=== PATIENT | female | born 1960 | race African-American/Black ===

== ENCOUNTER 2017-04-01 06:59 | Inpatient (IN) | payer MEDICARE, MEDICAID ==
[~2017-04-01] VITALS: Ht 177.8 cm; Wt 91.2 kg
[~2017-04-01 06:59] MED LIST: LISI-646 PO; METF-370 PO
[2017-04-01] MEDS ORDERED: PROMETHAZINE HCL 25 MG/ML 1ML ONE (07:48)
[2017-04-01] MEDS ORDERED: PROMETHAZINE HCL 25 MG/ML 1ML IV ONE (08:15)
[2017-04-01] MEDS ORDERED: SODIUM CHLORIDE 0.9% 1,000 ML IVB ONE ×2 (08:29→14:43)
[2017-04-01] MEDS ORDERED: MORPHINE SULF INJ 2 MG/ML SYRINGE 1ML IV ONE ×2 (08:30→11:30)
[2017-04-01 09:23] LABS: Albumin 3.9 g/dL (3.4-5.0); Anion Gap 9 (5-15); Aspartate Aminotransferase 13 U/L (15-37); BUN/Creatinine Ratio 10.9; Blood Urea Nitrogen 10 mg/dL (7-18); Calcium 8.9 mg/dL (8.5-10.1); Carbon Dioxide 24 mmol/L (21-32); Chloride 110 mmol/L (98-107); GFR African American 82 mL/min; GFR Non-African American 67 mL/min; Glucose 218 mg/dL (74-106); Magnesium 1.7 mg/dL (1.6-2.6); Potassium 3.3 mmol/L (3.5-5.1); Sodium 143 mmol/L (136-145)
[2017-04-01 09:28] LABS: Alkaline Phosphatase 70 U/L (45-117); Bilirubin, Total 0.4 mg/dL (0.2-1.0); Total Protein 8.3 g/dL (6.4-8.2)
[2017-04-01] MEDS ORDERED: MORPHINE SULF INJ 2 MG/ML SYRINGE 1ML ONE (11:14)
[2017-04-01 11:33] LABS: Urine Bilirubin Negative (Negative); Urine Blood Negative /uL (Negative); Urine Color Colorless (Yellow); Urine Glucose 3+ mg/dL (Normal); Urine Ketone Negative (Negative); Urine Nitrite Negative (Negative); Urine RBC 3 /hpf (0 - 4); Urine Squamous Epithelial Cell FEW /hpf (<5); Urine Urobilinogen Normal (Negative)
[2017-04-01 12:19] LABS: Basophils # (auto) 0.1 uL; Basophils % (auto) 0.4 % (0.0-2.0); Eosinophils # (auto) 0 uL; Hematocrit 43.2 % (36.0-46.0); Hemoglobin 14.5 g/dL (12.2-16.2); Lymphocytes # (auto) 0.7 uL; Lymphocytes % (auto) 6.4 % (10.0-50.0); Mean Corpuscular Hemoglobin 29.3 pg (28.0-32.0); Mean Corpuscular Hgb Conc. 33.5 g/dL (32.0-36.0); Mean Corpuscular Volume 87.4 fL (80.0-100.0); Mean Platelet Volume 9.9 fL (6.9-10.8); Monocytes # (auto) 0.2 uL; Monocytes % (auto) 1.8 % (0.0-12.0); Neutrophils # (auto) 10.6 uL; Neutrophils % (auto) 91.4 % (37.0-80.0); Nucleated Red Blood Cells % 0.1 %; Platelet Count (auto) 188 10^3/uL (140-450); Red Cell Distribution Width 14.5 % (11.8-14.3); White Blood Cell 11.6 10^3/uL (4.4-10.8)
[2017-04-01] MEDS ORDERED: POTASSIUM CHL 10% (20 MEQ/15ML) 15ml ORAL SOLN PO ONE (12:30)
[2017-04-01] MEDS ORDERED: PROCHLORPERAZINE EDISYLATE 5 MG/ML 2ML VIAL IV ONE (14:45)
[2017-04-01] MEDS ORDERED: TEMAZEPAM 15 MG CAP PO PRN (15:00)
[2017-04-01] MEDS ORDERED: MORPHINE SULF INJ 2 MG/ML SYRINGE 1ML IV PRN ×2 (15:00)
[2017-04-01] MEDS ORDERED: DEXTROSE (50%) 50ML SYRG IV PRN (15:00)
[2017-04-01] MEDS ORDERED: HYDROcodone-ACET 5/325MG TAB PO PRN (15:00)
[2017-04-01] MEDS ORDERED: cefTRIAXone 1GM/50ML D5W 50 ML IV ONE (15:00)
[2017-04-01] MEDS ORDERED: NITROGLYCERIN 0.4 MG SL TAB SL PRN (15:00)
[2017-04-01] MEDS: SOD CHL 0.9%/ KCL 20MEQ 1,000 ML IV SCH (17:13)
[2017-04-01] MEDS: FAMOTIDINE (10MG/ML) 2ML VL IV SCH (17:13)
[2017-04-01] MEDS: PROMETHAZINE HCL 25 MG/ML 1ML IV PRN (17:24)
[2017-04-01 17:49] VITALS: BP 152/84
[2017-04-01] MEDS: metroNIDAZOLE 500MG/100ML 100 ML IV SCH (18:19)
[2017-04-01] MEDS: ACCU-CHEK COMFORT CURVE STRIP VI SCH (18:40)
[2017-04-01] MEDS: InsuLIN REG 1unit/0.01ml Soln (100units/ml) SC SCH (18:41)
[2017-04-02] MEDS: metroNIDAZOLE 500MG/100ML 100 ML IV SCH ×5 (00:27→23:43)
[2017-04-02] MEDS: InsuLIN REG 1unit/0.01ml Soln (100units/ml) SC SCH ×5 (00:27→23:45)
[2017-04-02] MEDS: ACCU-CHEK COMFORT CURVE STRIP VI SCH ×5 (00:28→23:45)
[2017-04-02] MEDS: SOD CHL 0.9%/ KCL 20MEQ 1,000 ML IV SCH ×3 (00:28→21:06)
[2017-04-02] MEDS: FAMOTIDINE (10MG/ML) 2ML VL IV SCH ×2 (02:33→15:11)
[2017-04-02] MEDS: hydrALAZINE HCL 20 MG/ML VL IV PRN ×2 (02:34→17:25)
[2017-04-02 04:21] VITALS: BP 188/97
[2017-04-02] MEDS: ACETAMINOPHEN 500 MG TAB PO PRN ×2 (05:41→21:06)
[2017-04-02] MEDS: LORazepam 0.5 MG TAB PO PRN ×4 (05:41→23:43)
[2017-04-02 06:58] LABS: Basophils # (auto) 0.1 uL; Basophils % (auto) 0.5 % (0.0-2.0); Eosinophils # (auto) 0 uL; Hematocrit 45.6 % (36.0-46.0); Hemoglobin 15.3 g/dL (12.2-16.2); Lymphocytes # (auto) 1.5 uL; Lymphocytes % (auto) 9.1 % (10.0-50.0); Mean Corpuscular Hemoglobin 28.6 pg (28.0-32.0); Mean Corpuscular Hgb Conc. 33.6 g/dL (32.0-36.0); Mean Corpuscular Volume 85.1 fL (80.0-100.0); Mean Platelet Volume 10.7 fL (6.9-10.8); Monocytes # (auto) 0.9 uL; Monocytes % (auto) 5.3 % (0.0-12.0); Neutrophils # (auto) 14.5 uL; Neutrophils % (auto) 85.1 % (37.0-80.0); Platelet Count (auto) 192 10^3/uL (140-450); Red Cell Distribution Width 14.5 % (11.8-14.3)
[2017-04-02 07:34] LABS: Potassium 3.1 mmol/L (3.5-5.1)
[2017-04-02 07:35] LABS: BUN/Creatinine Ratio 13.3; Bilirubin, Total 0.5 mg/dL (0.2-1.0); Calcium 9.3 mg/dL (8.5-10.1); Total Protein 8.9 g/dL (6.4-8.2)
[2017-04-02 09:10] VITALS: BP 147/92
[2017-04-02] MEDS: cefTRIAXone 1GM/50ML D5W 50 ML IV SCH (10:43)
[2017-04-02] MEDS: LISINOPRIL 20 MG TAB PO SCH (10:44)
[2017-04-02] MEDS: PROMETHAZINE HCL 25 MG/ML 1ML IV PRN ×3 (12:30→23:43)
[2017-04-02 13:00] VITALS: BP 148/78
[2017-04-02 17:10] VITALS: BP 168/95
[2017-04-02 18:42] VITALS: BP 151/109
[2017-04-02 21:59] VITALS: BP 145/102
[2017-04-02] MEDS ORDERED: LABETALOL HCL 5 MG/ML 4ML SYRINGE IV PRN (22:15)
[2017-04-03] MEDS: FAMOTIDINE (10MG/ML) 2ML VL IV SCH (02:42)
[2017-04-03 04:39] VITALS: BP 157/98
[2017-04-03] MEDS: metroNIDAZOLE 500MG/100ML 100 ML IV SCH (05:26)
[2017-04-03] MEDS: LORazepam 0.5 MG TAB PO PRN (05:26)
[2017-04-03] MEDS: ACCU-CHEK COMFORT CURVE STRIP VI SCH (05:27)
[2017-04-03] MEDS: InsuLIN REG 1unit/0.01ml Soln (100units/ml) SC SCH (05:27)
[2017-04-03] MEDS: SOD CHL 0.9%/ KCL 20MEQ 1,000 ML IV SCH (05:28)
[2017-04-03] MEDS: PROMETHAZINE HCL 25 MG/ML 1ML IV PRN (06:39)
[2017-04-03 06:52] LABS: Potassium 3.2 mmol/L (3.5-5.1)
[2017-04-03 06:55] LABS: BUN/Creatinine Ratio 16.3
[2017-04-03 07:37] VITALS: BP 102/46
[2017-04-03 07:56] LABS: Basophils # (auto) 0.1 uL; Basophils % (auto) 0.6 % (0.0-2.0); Eosinophils # (auto) 0 uL; Eosinophils % (auto) 0.1 % (0.0-7.0); Hematocrit 49.1 % (36.0-46.0); Hemoglobin 16.7 g/dL (12.2-16.2); Lymphocytes % (auto) 16.1 % (10.0-50.0); Mean Corpuscular Hemoglobin 29.1 pg (28.0-32.0); Mean Corpuscular Hgb Conc. 33.9 g/dL (32.0-36.0); Mean Corpuscular Volume 85.9 fL (80.0-100.0); Mean Platelet Volume 10.1 fL (6.9-10.8); Monocytes # (auto) 0.9 uL; Monocytes % (auto) 7.3 % (0.0-12.0); Neutrophils # (auto) 9.6 uL; Neutrophils % (auto) 75.9 % (37.0-80.0); Nucleated Red Blood Cells % 0.1 %; Platelet Count (auto) 209 10^3/uL (140-450); Red Cell Distribution Width 14.5 % (11.8-14.3); White Blood Cell 12.6 10^3/uL (4.4-10.8)
[2017-04-03 08:00] VITALS: BP 152/99
[2017-04-03] MEDS: cefTRIAXone 1GM/50ML D5W 50 ML IV SCH (09:00)
[2017-04-03] MEDS: LISINOPRIL 20 MG TAB PO SCH (09:00)
[2017-04-03] MEDS ORDERED: OMEP20CA74 PO (10:12)
[2017-04-03] MEDS ORDERED: HYDR-4663 PO (10:12)
[2017-04-03] MEDS ORDERED: SIME180C20 PO (10:12)
[2017-04-03] MEDS ORDERED: METR500T PO (10:12)
[2017-04-03] MEDS ORDERED: METO-281 PO (10:12)
[2017-04-03 10:26] VITALS: BP 152/99
== END 2017-04-03 11:04 | disposition home or self-care (01) | DRG 392 ==
LOC: ER 06:59 → TELE 07:00 → TELE-CENTR 15:45
PROVIDERS: ADMIT Internal Medicine; ATTEND Nurse Practitioner Acute Care
DX: K52.9 Noninfective gastroenteritis and colitis, unspecified (principal); E11.65 Type 2 diabetes mellitus with hyperglycemia; I10 Essential (primary) hypertension; T62.91XA Toxic effect of unspecified noxious substance eaten as food, accidental (unintentional), initial encounter; E66.9 Obesity, unspecified; K58.0 Irritable bowel syndrome with diarrhea; E87.6 Hypokalemia; K57.30 Diverticulosis of large intestine without perforation or abscess without bleeding; F32.9 Major depressive disorder, single episode, unspecified; F41.9 Anxiety disorder, unspecified; F17.210 Nicotine dependence, cigarettes, uncomplicated; Y92.89 Other specified places as the place of occurrence of the external cause; Z82.49 Family history of ischemic heart disease and other diseases of the circulatory system; Z83.3 Family history of diabetes mellitus; Z80.9 Family history of malignant neoplasm, unspecified
CPT/HCPCS: 36415; 71010; 71020; 74176; 80048; 80053; 80061; 81001; 82150; 82962; 83036; 83690; 83735; 84443; 84484; 85025; 85652; 86141; 93005; 96361; 96365; 96375; J0696; J1815; J3490

== ENCOUNTER 2017-07-24 11:44 | Emergency (ER) | payer MEDICARE, MEDICAID, OTHER ==
[~2017-07-24] VITALS: Ht 175.3 cm; Wt 92.5 kg
[~2017-07-24 11:44] MED LIST changes: +HYDR-4683 PO; -METF-370 PO; +METO-281 PO; +METR500T PO; +OMEP20CA74 PO; +SIME180C20 PO
[2017-07-24 13:01] LABS: Basophils # (auto) 0 uL; Basophils % (auto) 0.4 % (0.0-2.0); Eosinophils # (auto) 0 uL; Hematocrit 44.9 % (36.0-46.0); Hemoglobin 14.8 g/dL (12.2-16.2); Lymphocytes % (auto) 8.7 % (10.0-50.0); Mean Corpuscular Hemoglobin 28.6 pg (28.0-32.0); Mean Corpuscular Hgb Conc. 32.9 g/dL (32.0-36.0); Mean Corpuscular Volume 86.9 fL (80.0-100.0); Monocytes # (auto) 0.2 uL; Monocytes % (auto) 1.8 % (0.0-12.0); Neutrophils # (auto) 10.6 uL; Neutrophils % (auto) 89.1 % (37.0-80.0); Platelet Count (auto) 192 10^3/uL (140-450); Red Blood Cells 5.17 10^6/uL (4.0-5.20); Red Cell Distribution Width 14.6 % (11.8-14.3); White Blood Cell 11.9 10^3/uL (4.4-10.8)
[2017-07-24 13:43] LABS: Albumin 4.4 g/dL (3.4-5.0); Bilirubin, Total 0.5 mg/dL (0.2-1.0); Calcium 9.4 mg/dL (8.5-10.1); Potassium 3.5 mmol/L (3.5-5.1)
[2017-07-24] MEDS ORDERED: MORPHINE SULFATE 4 MG/ML SYR/VIAL IV ONE (14:30)
[2017-07-24] MEDS ORDERED: ONDANSETRON HCL 4 MG/2 ML VIAL IV ONE (14:30)
[2017-07-24] MEDS ORDERED: SODIUM CHLORIDE 0.9% 1,000 ML IVB ONE (14:30)
[2017-07-24] MEDS ORDERED: PANTOPRAZOLE 40 MG/10 ML VIAL IV STA (14:30)
[2017-07-24 14:48] LABS: Urine Bacteria NONE SEEN /hpf (None Seen); Urine Blood 1+ /uL (Negative); Urine Specific Gravity 1.015 (1.001-1.035); Urine WBC 1 /hpf (0 - 5)
[2017-07-24 15:03] LABS: Amylase 62 U/L (25-115); Lipase 98 U/L (73-393); Magnesium 1.7 mg/dL (1.6-2.6)
[2017-07-24 18:09] VITALS: BP 147/80
== END 2017-07-24 18:35 | disposition home or self-care (01) ==
LOC: ER 11:44
DX: R11.2 Nausea with vomiting, unspecified (principal); R10.84 Generalized abdominal pain; F12.10 Cannabis abuse, uncomplicated; I10 Essential (primary) hypertension; F41.9 Anxiety disorder, unspecified; F32.9 Major depressive disorder, single episode, unspecified; Z87.891 Personal history of nicotine dependence
CPT/HCPCS: 36415; 74176; 80053; 81001; 82150; 83690; 83735; 84484; 85025; 93005; 94761; 96361; 96374; 96375; 99285; C9113; J2270; J2405; J7030

== ENCOUNTER 2021-09-08 07:42 | Emergency (ER) | payer MEDICARE, MEDICAID ==
[~2021-09-08] VITALS: Ht 175.3 cm; Wt 77.6 kg
[~2021-09-08 07:42] MED LIST changes: -HYDR-4683 PO; +HYDR-4833 PO; -LISI-646 PO; +LISI20TA28 PO; -SIME180C20 PO; +SIME1CAP12 PO
[2021-09-08 08:38] LABS: Basophils # (auto) 0.1 10 ^3/uL (0-0.2); Basophils % (auto) 0.8 % (0.0-2.0); Eosinophils # (auto) 0.2 10 ^3/uL (0-0.8); Hematocrit 44.3 % (36.0-46.0); Hemoglobin 15.1 g/dL (12.2-16.2); Lymphocytes # (auto) 3.7 10 ^3/uL (0.4-5.4); Lymphocytes % (auto) 41.7 % (10.0-50.0); Mean Corpuscular Hemoglobin 29.1 pg (28.0-32.0); Mean Corpuscular Volume 85.4 fL (80.0-100.0); Monocytes # (auto) 0.7 10 ^3/uL (0-1.3); Monocytes % (auto) 7.9 % (0.0-12.0); Neutrophils # (auto) 4.3 10 ^3/uL (1.6-8.6); Neutrophils % (auto) 47.6 % (37.0-80.0); Nucleated Red Blood Cells % 0.1 %; Red Blood Cells 5.19 10^6/uL (4.0-5.20); Red Cell Distribution Width 14.1 % (11.8-14.3)
[2021-09-08 08:49] LABS: Albumin 4.1 g/dL (3.4-5.0); Calcium 9.6 mg/dL (8.5-10.1); Potassium 3.8 mmol/L (3.5-5.1)
[2021-09-08 08:55] LABS: BUN/Creatinine Ratio 21.2; Bilirubin, Total 0.5 mg/dL (0.2-1.0); Total Protein 8.2 g/dL (6.4-8.2)
[2021-09-08 09:50] LABS: Urine Bacteria FEW /hpf (None Seen); Urine Blood TRACE /uL (Negative); Urine Specific Gravity 1.011 (1.001-1.035); Urine WBC 21 /hpf (0 - 5)
[2021-09-08] MEDS ORDERED: SODIUM CHLORIDE 0.9% 500 ML IVB ONE (11:30)
[2021-09-08] MEDS ORDERED: SODIUM CHLORIDE 0.9% 1,000 ML IV ONE (11:30)
[2021-09-08] MEDS ORDERED: METOCLOPRAMIDE HCL 5MG/ml INJ 2ml VIAL IV ONE (11:30)
[2021-09-08 11:59] LABS: Magnesium 1.7 mg/dL (1.6-2.6)
[2021-09-08 12:03] VITALS: BP 93/58
== END 2021-09-08 14:03 | disposition home or self-care (01) ==
LOC: ER 07:42
DX: K29.70 Gastritis, unspecified, without bleeding (principal); E11.21 Type 2 diabetes mellitus with diabetic nephropathy; N63.0 Unspecified lump in unspecified breast; I12.9 Hypertensive chronic kidney disease with stage 1 through stage 4 chronic kidney disease, or unspecified chronic kidney disease; E11.22 Type 2 diabetes mellitus with diabetic chronic kidney disease; N18.30 Chronic kidney disease, stage 3 unspecified; E78.5 Hyperlipidemia, unspecified; Z79.899 Other long term (current) drug therapy
CPT/HCPCS: 36415; 71046; 74176; 80053; 81001; 83690; 83735; 84443; 84484; 85025; 93005; 96361; 96374; 99285; J2765; J7030; J7040

== ENCOUNTER 2022-01-31 21:40 | Emergency (ER) | payer MEDICARE, MEDICAID ==
[~2022-01-31] VITALS: Ht 175.3 cm; Wt 82.0 kg
[2022-01-31] MEDS ORDERED: ONDANSETRON ODT 4 MG TAB PO ONE (22:15)
[2022-01-31] MEDS ORDERED: HYDROmorphone HCL 2 MG/ML VL/or syr IM ONE (22:15)
[2022-01-31 23:39] LABS: Basophils # (auto) 0.1 10 ^3/uL (0-0.2); Basophils % (auto) 1.9 % (0.0-2.0); Eosinophils # (auto) 0 10 ^3/uL (0-0.8); Eosinophils % (auto) 0.5 % (0.0-7.0); Hematocrit 44.2 % (36.0-46.0); Hemoglobin 14.6 g/dL (12.2-16.2); Lymphocytes # (auto) 0.8 10 ^3/uL (0.4-5.4); Lymphocytes % (auto) 18.8 % (10.0-50.0); Mean Corpuscular Hemoglobin 28.4 pg (28.0-32.0); Mean Corpuscular Volume 86.1 fL (80.0-100.0); Monocytes # (auto) 0.3 10 ^3/uL (0-1.3); Monocytes % (auto) 7.4 % (0.0-12.0); Neutrophils # (auto) 3.1 10 ^3/uL (1.6-8.6); Neutrophils % (auto) 71.4 % (37.0-80.0); Nucleated Red Blood Cells % 0.1 %; Red Blood Cells 5.13 10^6/uL (4.0-5.20); Red Cell Distribution Width 14.3 % (11.8-14.3); White Blood Cell 4.4 10^3/uL (4.4-10.8)
[2022-02-01] MEDS ORDERED: NITR-87 PO (00:33)
[2022-02-01 02:04] LABS: Alanine Aminotransferase 23 U/L (13-56); Albumin 4.3 g/dL (3.4-5.0); Anion Gap 11 (5-15); Aspartate Aminotransferase 23 U/L (15-37); BUN/Creatinine Ratio 15.7; Blood Urea Nitrogen 14 mg/dL (7-18); Calcium 8.9 mg/dL (8.5-10.1); Carbon Dioxide 20 mmol/L (21-32); Chloride 110 mmol/L (98-107); GFR African American 83 mL/min; GFR Non-African American 69 mL/min; Glucose 224 mg/dL (74-106); Lipase 82 U/L (73-393); Potassium 3.2 mmol/L (3.5-5.1); Sodium 141 mmol/L (136-145)
[2022-02-01 02:05] LABS: Alkaline Phosphatase 64 U/L (45-117); Bilirubin, Total 0.3 mg/dL (0.2-1.0); Total Protein 9.1 g/dL (6.4-8.2)
[2022-02-01] MEDS ORDERED: SODIUM CHLORIDE 0.9% 1,000 ML IV ONE (02:30)
[2022-02-01] MEDS ORDERED: POTASSIUM CHL 20 Meq TABLET PO ONE (02:30)
[2022-02-01] MEDS ORDERED: cefTRIAXone SOD 1,000 MG VL IM ONE (02:45)
[2022-02-01] MEDS ORDERED: POTASSIUM EFFERVESENT TAB 25 MEQ PO ONE (02:45)
[2022-02-01 03:00] VITALS: BP 134/87
[2022-02-01] MEDS ORDERED: ONDA-144 PO (03:03)
== END 2022-02-01 03:11 | disposition home or self-care (01) ==
LOC: ER 21:40
DX: N39.0 Urinary tract infection, site not specified (principal); E86.0 Dehydration; E87.6 Hypokalemia
CPT/HCPCS: 36415; 71045; 74176; 80053; 83690; 84484; 85025; 93005; 96372; 99285; J0696; J1170; Q0162

== ENCOUNTER 2022-07-20 15:52 | Inpatient (IN) | payer MEDICARE, MEDICAID ==
[~2022-07-20] VITALS: Ht 175.3 cm; Wt 76.3 kg
[~2022-07-20 15:52] MED LIST changes: +NITR-87 PO; +ONDA-144 PO
[2022-07-20 17:04] LABS: Urine Bacteria MOD /hpf (None Seen); Urine Blood 2+ /uL (Negative); Urine Hyaline Cast FEW /lpf (0 - 2); Urine Mucus FEW (None Seen); Urine Specific Gravity 1.016 (1.001-1.035); Urine WBC 30 /hpf (0 - 5)
[2022-07-20] MEDS ORDERED: SODIUM CHLORIDE 0.9% 1,000 ML IV ONE (19:30)
[2022-07-20] MEDS: cefTRIAXone 1GM/50ML D5W 50 ML IV ONE ×3 (19:30→21:46)
[2022-07-20 20:10] LABS: Hematocrit 47.3 % (36.0-46.0); Hemoglobin 15.6 g/dL (12.2-16.2); Mean Corpuscular Hemoglobin 28.6 pg (28.0-32.0); Mean Corpuscular Hgb Conc. 32.9 g/dL (32.0-36.0); Mean Corpuscular Volume 87.2 fL (80.0-100.0); Red Blood Cells 5.43 10^6/uL (4.0-5.20); Red Cell Distribution Width 14.7 % (11.8-14.3); White Blood Cell 14.1 10^3/uL (4.4-10.8)
[2022-07-20 20:11] LABS: Amphetamine Screen, Urine NEGATIVE (NEGATIVE); Barbiturate Scree,Urine NEGATIVE (NEGATIVE); Benzodiazephine Screen, Urine NEGATIVE (NEGATIVE); Cannabinoid Screen, Urine POSITIVE (NEGATIVE); Cocaine Screen, Urine NEGATIVE (NEGATIVE); Phencyclidine Screen, Urine NEGATIVE (NEGATIVE)
[2022-07-20 20:17] LABS: Opiate Scree,Urine NEGATIVE (NEGATIVE)
[2022-07-20 20:27] LABS: Albumin 4.4 g/dL (3.4-5.0); BUN/Creatinine Ratio 18.7; Calcium 10.3 mg/dL (8.5-10.1); Magnesium 1.6 mg/dL (1.6-2.6); Potassium 3.4 mmol/L (3.5-5.1)
[2022-07-20 20:28] LABS: Bilirubin, Total 0.6 mg/dL (0.2-1.0); Total Protein 9.5 g/dL (6.4-8.2)
[2022-07-20 20:32] LABS: Basophils % (manual) 0 (0.0-2.0); Blast Cells 0; Eosinophils % (manual) 0 (0-7); Metamyelocytes % 0; Myelocytes % 0; Promyelocytes % 0; Reactive Lymphocytes 0
[2022-07-20 20:55] LABS: Band Neutrophils % (manual) 2; Lymphocytes % (manual) 9 (10.0-50.0); Monocytes % (manual) 4 (0-12)
[2022-07-20] MEDS: PROCHLORPERAZINE EDISYLATE 5 MG/ML 2ML VIAL IV ONE ×2 (21:16→21:34)
[2022-07-21] MEDS ORDERED: ACETAMINOPHEN 325 MG TAB PO PRN
[2022-07-21] MEDS ORDERED: DEXTROSE (50%) 50ML SYRG IV PRN (00:15)
[2022-07-21] MEDS: HYDROcodone-ACET 5/325MG TAB PO PRN ×2 (05:12→13:52)
[2022-07-21 07:12] LABS: Basophils # (auto) 0.1 10 ^3/uL (0-0.2); Basophils % (auto) 0.7 % (0.0-2.0); Eosinophils # (auto) 0 10 ^3/uL (0-0.8); Eosinophils % (auto) 0.1 % (0.0-7.0); Hematocrit 43.4 % (36.0-46.0); Hemoglobin 14.7 g/dL (12.2-16.2); Lymphocytes % (auto) 13.8 % (10.0-50.0); Mean Corpuscular Hemoglobin 29.1 pg (28.0-32.0); Mean Corpuscular Volume 85.5 fL (80.0-100.0); Monocytes # (auto) 0.7 10 ^3/uL (0-1.3); Monocytes % (auto) 5.1 % (0.0-12.0); Neutrophils # (auto) 11.4 10 ^3/uL (1.6-8.6); Neutrophils % (auto) 80.3 % (37.0-80.0); Nucleated Red Blood Cells % 0.1 %; Red Blood Cells 5.07 10^6/uL (4.0-5.20); White Blood Cell 14.1 10^3/uL (4.4-10.8)
[2022-07-21 07:29] LABS: Albumin 4.1 g/dL (3.4-5.0); BUN/Creatinine Ratio 16.7; Calcium 9.6 mg/dL (8.5-10.1); Potassium 3.4 mmol/L (3.5-5.1)
[2022-07-21 07:31] LABS: Bilirubin, Total 0.6 mg/dL (0.2-1.0); Total Protein 8.2 g/dL (6.4-8.2)
[2022-07-21] MEDS: ACCU-CHEK COMFORT CURVE STRIP VI SCH ×4 (07:34→23:15)
[2022-07-21] MEDS: InsuLIN REG 1unit/0.01ml Soln (100units/ml) SC SCH ×4 (08:10→23:15)
[2022-07-21] MEDS: cefTRIAXone 1GM/50ML D5W 50 ML IV SCH (10:09)
[2022-07-21] MEDS ORDERED: POTASSIUM CHL 20 Meq TABLET PO ONE (13:45)
[2022-07-21] MEDS ORDERED: ONDANSETRON HCL 4 MG/2 ML VIAL IV PRN (13:45)
[2022-07-21] MEDS: SODIUM CHLORIDE 0.9% 1,000 ML IV SCH ×2 (13:53→23:45)
[2022-07-21] MEDS: METOCLOPRAMIDE HCL 5MG/ml INJ 2ml VIAL IV SCH ×2 (15:20→23:18)
[2022-07-21] MEDS: LORazepam 0.5 MG TAB PO PRN (15:20)
[2022-07-21] MEDS: hydrALAZINE HCL 20 MG/ML VL IV PRN (23:20)
[2022-07-22] MEDS: ACCU-CHEK COMFORT CURVE STRIP VI SCH ×4 (07:23→21:22)
[2022-07-22] MEDS: InsuLIN REG 1unit/0.01ml Soln (100units/ml) SC SCH ×4 (07:29→21:39)
[2022-07-22] MEDS: METOCLOPRAMIDE HCL 5MG/ml INJ 2ml VIAL IV SCH ×3 (07:30→21:22)
[2022-07-22 09:00] VITALS: BP 147/100
[2022-07-22 09:34] VITALS: BP 147/100
[2022-07-22] MEDS: LISINOPRIL 20 MG TAB PO SCH (09:54)
[2022-07-22] MEDS: cefTRIAXone 1GM/50ML D5W 50 ML IV SCH ×2 (10:58→13:01)
[2022-07-22] MEDS: SODIUM CHLORIDE 0.9% 1,000 ML IV SCH ×3 (10:58→19:45)
[2022-07-22 13:00] VITALS: BP 167/115
[2022-07-22] MEDS: hydrALAZINE HCL 20 MG/ML VL IV PRN (13:04)
[2022-07-22 17:00] VITALS: BP 157/100
[2022-07-22] MEDS: LORazepam 0.5 MG TAB PO PRN (18:29)
[2022-07-22 20:00] VITALS: BP 142/98
[2022-07-22 22:00] VITALS: BP 142/98
[2022-07-23 05:00] VITALS: BP 120/77
[2022-07-23 05:23] LABS: Basophils # (auto) 0 10 ^3/uL (0-0.2); Basophils % (auto) 0.4 % (0.0-2.0); Eosinophils # (auto) 0 10 ^3/uL (0-0.8); Eosinophils % (auto) 0.6 % (0.0-7.0); Hematocrit 46.5 % (36.0-46.0); Hemoglobin 15.2 g/dL (12.2-16.2); Lymphocytes # (auto) 2.3 10 ^3/uL (0.4-5.4); Lymphocytes % (auto) 27.4 % (10.0-50.0); Mean Corpuscular Hemoglobin 28.7 pg (28.0-32.0); Mean Corpuscular Hgb Conc. 32.6 g/dL (32.0-36.0); Mean Corpuscular Volume 87.9 fL (80.0-100.0); Monocytes # (auto) 0.9 10 ^3/uL (0-1.3); Monocytes % (auto) 10.3 % (0.0-12.0); Neutrophils # (auto) 5.1 10 ^3/uL (1.6-8.6); Neutrophils % (auto) 61.3 % (37.0-80.0); Red Blood Cells 5.29 10^6/uL (4.0-5.20); Red Cell Distribution Width 14.9 % (11.8-14.3); White Blood Cell 8.2 10^3/uL (4.4-10.8)
[2022-07-23 05:42] LABS: Albumin 3.4 g/dL (3.4-5.0); BUN/Creatinine Ratio 18.3; Calcium 9.1 mg/dL (8.5-10.1); Potassium 3.2 mmol/L (3.5-5.1)
[2022-07-23] MEDS: SODIUM CHLORIDE 0.9% 1,000 ML IV SCH (05:45)
[2022-07-23 05:50] LABS: Bilirubin, Total 0.9 mg/dL (0.2-1.0); Total Protein 7.9 g/dL (6.4-8.2)
[2022-07-23] MEDS: ACCU-CHEK COMFORT CURVE STRIP VI SCH ×2 (06:18→13:01)
[2022-07-23] MEDS: METOCLOPRAMIDE HCL 5MG/ml INJ 2ml VIAL IV SCH (06:18)
[2022-07-23] MEDS: InsuLIN REG 1unit/0.01ml Soln (100units/ml) SC SCH ×2 (06:19→13:04)
[2022-07-23 09:00] VITALS: BP 114/80
[2022-07-23] MEDS ORDERED: METOPROLOL TARTRATE 50 MG TAB PO SCH (10:00)
[2022-07-23] MEDS: cefTRIAXone 1GM/50ML D5W 50 ML IV SCH (12:50)
[2022-07-23] MEDS: LISINOPRIL 20 MG TAB PO SCH (12:51)
[2022-07-23 13:00] VITALS: BP 121/86
[2022-07-23] MEDS ORDERED: ALPR0.25 PO (14:58)
[2022-07-23] MEDS ORDERED: ONDA-144 PO (14:58)
[2022-07-23 15:48] VITALS: BP 121/86
[2022-07-25 11:37] LABS: Hepatitis B Surface Antibody Negative (Negative)
[2022-07-25 12:46] LABS: Hepatitis C Antibody Negative (Negative)
== END 2022-07-23 16:35 | disposition home or self-care (01) | DRG 392 ==
LOC: ER 15:52 → TELE 23:59 → TELE-CENTR 07-22 08:46
PROVIDERS: ADMIT Internal Medicine; ATTEND Internal Medicine
DX: R11.2 Nausea with vomiting, unspecified (principal); N12 Tubulo-interstitial nephritis, not specified as acute or chronic; F12.90 Cannabis use, unspecified, uncomplicated; E11.65 Type 2 diabetes mellitus with hyperglycemia; E86.0 Dehydration; E87.6 Hypokalemia; F17.210 Nicotine dependence, cigarettes, uncomplicated; I10 Essential (primary) hypertension; N64.4 Mastodynia; Z20.822 Contact with and (suspected) exposure to COVID-19; F32.A Depression, unspecified; F41.9 Anxiety disorder, unspecified; Z63.4 Disappearance and death of family member; Z82.49 Family history of ischemic heart disease and other diseases of the circulatory system; Z83.3 Family history of diabetes mellitus
CPT/HCPCS: 36415; 80053; 80307; 81001; 82962; 83735; 85007; 85025; 85027; 86706; 86803; 87086; 87088; 87186; 87340; 87426; 96361; 96365; 96375; G0378; J0696; J1815; J2405

== ENCOUNTER 2025-03-27 10:03 | Day surgery (SDC) | payer OTHER, MEDICAID ==
[2025-03-21 15:31] LABS: Hematocrit 40.6 % (36.0-46.0); Hemoglobin 13.7 g/dL (12.2-16.2); Mean Corpuscular Hemoglobin 29.5 pg (28.0-32.0); Mean Corpuscular Volume 87.1 fL (80.0-100.0); Nucleated Red Blood Cells % 0.0 %
[2025-03-21 15:34] LABS: Urine Protein, UAD Negative (Negative)
[2025-03-21 15:44] LABS: INR 0.92 (0.9-1.15); Partial Thromboplastin Time 25.0 SEC (24.5-34.5); Prothrombin Time 9.8 sec (9.3-11.8)
[2025-03-21 15:49] LABS: Alanine Aminotransferase 13 U/L (7-40); Albumin 4.3 g/dL (3.2-4.8); Alkaline Phosphatase 56 U/L (46-116); Anion Gap 6 (5-15); BUN/Creatinine Ratio 9.6 (10.0-20.0); Bilirubin, Total 0.5 mg/dL (0.2-1.0); Blood Urea Nitrogen 10 mg/dL (9-23); Calcium 9.6 mg/dL (8.7-10.4); Carbon Dioxide 26 mmol/L (20-31); Glucose 98 mg/dL (74-106); Potassium 3.8 mmol/L (3.5-5.1); Sodium 145 mmol/L (136-145); Total Protein 8.2 g/dL (5.7-8.2)
[2025-03-21 15:55] LABS: Chloride 113 mmol/L (98-107)
[~2025-03-27] VITALS: Ht 175.3 cm; Wt 82.6 kg
[~2025-03-27 10:03] MED LIST changes: +ACET-1304 PO; +ALPR0.25 PO; +ATOR10TA PO; +CHOL200064 PO; +DULO20CA PO; +FAMO20TA10 PO; +HYDR-3682 PO; -HYDR-4833 PO; -LISI20TA28 PO; +LISI20TA56 PO; +METF-370 PO; -METO-281 PO; +METO25TA93 PO; -METR500T PO; -OMEP20CA74 PO; +PRAZ1CAP2 PO; -SIME1CAP12 PO
--- NOTE | 2025-03-27 12:35 | DVHHP2 ---
GI H&P Pre-Op Assessment Date: 03/27/25 Chief complaint: Nausea, vomiting, positive Cologuard test HPI: per clinic note Past medical history: per clinic note Past surgical history: per clinic note Family history: per clinic note Physical exam: General: NAD, AAOX3 HEENT: PERRL, no scleral icterus, normal hearing, gums without lesions or bleeding, oropharynx clear without erythema or exudate. Neck: Supple without enlargement of the thyroid, or lymphadenopathy. Chest: Normal size and shape, no tenderness, lung [place] clear to auscultation and percussion, nonlabored breathing. Heart: RRR, no murmur Abdomen: non-distended, no tenderness to palpation, +BS, no hepatosplenomegaly Extremities: no edema Neurological: CN II-XII intact, sensation intact in all extremities, 5+ strength in all extremities Skin: No rashes, No jaundice Assessment: - Nausea, vomiting, positive Cologuard test Plan: - EGD - Colonoscopy - Risks (bleeding, infection, perforation, reaction to sedation medications and cardiopulmonary arrest) and benefit of the procedure were explained to patient. Patient agrees to undergo the procedure. ARASH BURNS MD Mar 27, 2025 12:35
[2025-03-27] MEDS ORDERED: PROPOFOL 10 MG/ML 20 ML IV ONE (12:45)
[2025-03-27] MEDS ORDERED: fentaNYL CITRATE 100 MCG/2 ML VL ONE (12:45)
[2025-03-27 13:16] VITALS: PULSE 112; RESP 21; TEMP 98.8; O2SAT 95
--- NOTE | 2025-03-27 13:17 | DVHOP2 ---
Operative Report DATE OF OPERATION: 03/27/25 PROCEDURE: Upper Endoscopy. PREOPERATIVE INDICATION: The patient is a 64 -year-old female undergoing endoscopy for nausea and vomiting. POSTOPERATIVE DIAGNOSES: 1. Hiatal hernia from 37-40 cm. PROCEDURE PERFORMED BY: Tom Velásquez SCOPE: Olympus videoendoscope. ASA CLASS: 3 PREOPERATIVE MEDICATIONS: MAC with Dr Hamilton PROCEDURE IN DETAIL: After obtaining an informed consent, the patient was placed on her back. The patient was then sedated with the above medications. A bite block was placed between her teeth. The endoscope was then passed through the oropharynx, into the esophagus, and through the stomach and pylorus up to the second and third part of the duodenum. The duodenum was normal in appearance. The stomach was normal in appearance. Gastric biopsies were obtained using cold forceps. There was hiatal hernia from 37-40 cm. The GE junction was normal in appearance at 37 cm. The esophagus was normal in appearance. The endoscope was then withdrawn. The patient tolerated the procedure well without difficulty. COMPLICATIONS : None SPECIMENS: Gastric biopsies DISPOSITION: D/C to home PLAN: 1. Await for biopsy result TOM VELÁSQUEZ MD Mar 27, 2025 13:17
--- NOTE | 2025-03-27 13:18 | DVHOP2 ---
Operative Report DATE OF OPERATION: 03/27/25 PROCEDURE: Colonoscopy. PREOPERATIVE INDICATION: The patient is a 64 -year-old female undergoing colonoscopy for positive Cologuard test. POSTOPERATIVE DIAGNOSES: 1. Few 2 mm sigmoid polyps were removed with cold biopsy forceps. 2. Few diverticulosis PROCEDURE PERFORMED BY: Tom Velásquez M.D. SCOPE: Olympus videocolonoscope. ASA CLASS: 3 PREOPERATIVE MEDICATIONS: MAC with Dr Hamilton PROCEDURE IN DETAIL: After obtaining an informed consent, the patient was placed on left lateral decubitus position. She was then sedated with the above medications. A rectal examination was performed that was normal. The colonoscope was then passed through the anus into the rectosigmoid and through the descending, transverse, and ascending colon up to the cecum with visualization of the appendiceal orifice, base of the cecum and the ileocecal valve. A Few 2 mm sigmoid polyps were removed with cold biopsy forceps. They are likely to be benign. There was a few diverticulosis. The colonoscope was then withdrawn. The patient tolerated the procedure well without difficulty. WITHDRAWAL TIME: 9 minutes QUALITY OF THE PREP: [place] Bowel Prep score: 5 COMPLICATIONS : None SPECIMENS: Colon polyps DISPOSITION: D/C to home PLAN: 1. Repeat colonoscopy base on biopsy result TOM VELÁSQUEZ MD Mar 27, 2025 13:18
--- NOTE | 2025-03-27 13:19 | DVHDS2 ---
Physician Discharge Progress N Final Diagnosis: Hiatal hernia Colon polyps, diverticulosis Operations or Procedures: Operations or Procedures EGD with cold biopsy Colonoscopy with cold biopsy polypectomy Condition on Discharge: Good Disposition: Home Discharge Instructions: Diet: Regular Activity: No Restrictions, As Tolerated Medications: Resume previous home medications Follow Up Care: Discharge Statement: "Patient was advised to return to the ER or call 911 if any headaches, dizziness, shortness of breath, chest pain, abdominal pain, bleeding, fevers, or worsening of medical condition. Patient was counseled about treatment plan, medications, possible side effects, patientverbalized understanding. All questions were answered to the best of my ability. This discharge took greater then 30 minutes in planning, reviewing documentation, counseling the patient, and discussing with other team members." ARASH BURNS MD Mar 27, 2025 13:19
[2025-03-27 13:40] VITALS: BP 137/100; PULSE 87; RESP 17; O2SAT 95
== END 2025-03-27 14:05 | disposition home or self-care (01) ==
LOC: GI 10:03
PROVIDERS: ATTEND Internal Medicine Gastroenterology
DX: R19.5 Other fecal abnormalities (principal); R11.2 Nausea with vomiting, unspecified; K44.9 Diaphragmatic hernia without obstruction or gangrene; K63.5 Polyp of colon; K57.30 Diverticulosis of large intestine without perforation or abscess without bleeding; I10 Essential (primary) hypertension; K29.50 Unspecified chronic gastritis without bleeding; E11.9 Type 2 diabetes mellitus without complications; E78.00 Pure hypercholesterolemia, unspecified; E66.9 Obesity, unspecified; F17.210 Nicotine dependence, cigarettes, uncomplicated; F12.90 Cannabis use, unspecified, uncomplicated; F41.9 Anxiety disorder, unspecified; Z88.8 Allergy status to other drugs, medicaments and biological substances; Z91.041 Radiographic dye allergy status; Z91.013 Allergy to seafood; Z79.899 Other long term (current) drug therapy; Z79.84 Long term (current) use of oral hypoglycemic drugs
CPT/HCPCS: 36415; 43239; 45380; 80053; 81001; 82962; 85025; 85610; 85730; 88305; 88342; J2704; J3010; J7030